=== PATIENT | male | born 1945 | race African-American/Black ===

== ENCOUNTER 2022-02-10 20:12 | Inpatient (IN) | payer BC, MEDICAID ==
[~2022-02-10] VITALS: Ht 177.8 cm; Wt 86.2 kg
--- NOTE | 2022-02-10 20:17 | NUR ---
PT BIBA BLS. TAKEN TO BED 9
[2022-02-10 20:19] VITALS: BP 146/96
--- NOTE | 2022-02-10 20:21 | NUR ---
Dr. Garza examining patient.
--- NOTE | 2022-02-10 20:27 | NUR ---
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 PT IS COVID POSITIVE. MASK IS ON PT.
[2022-02-10] MEDS ORDERED: NACL 0.9% 1,000 ML IV ONE (20:35)
--- NOTE | 2022-02-10 20:38 | NUR ---
X-Ray at bedside.
--- NOTE | 2022-02-10 21:03 | NUR ---
ASSUMED CARE OF PT AT THIS TIME. IV ESTABLISHED, BLOOD DRAWN. VSS. PT IN POSITION OF COMFORT. WILL FOLLOW THROUGH WITH ALL CURRENT ORDERS. WILL CONTINUE TO MONITOR
[2022-02-10 21:13] LABS: BASOPHILS % (AUTO) 0.2 % (0.0-2.0); EOSINOPHILS # (AUTO) 0.1 K/uL (0-0.4); EOSINOPHILS % (AUTO) 1.6 % (0.0-4.0); HEMATOCRIT 39.7 % (36-52); HEMOGLOBIN 13.3 g/dL (12.0-18.0); LYMPHOCYTES % (AUTO) 15.2 % (20.5-51.1); MEAN CORPUSCULAR HEMOGLOBIN 26 pg (27-31); MEAN CORPUSCULAR HGB CONC 33 g/dL (33-37); MEAN CORPUSCULAR VOLUME 78.2 fL (80-94); MONOCYTES # (AUTO) 0.9 K/uL (0.8-1.0); NEUTROPHILS # (AUTO) 4.6 K/uL (1.8-7.7); PLATELET COUNT (AUTO) 365 K/uL (140-450); RED BLOOD CELL COUNT(AUTO) 5.08 MIL/uL (4.20-6.10); RED CELL DISTRIBUTION WIDTH 18.1 % (11.6-13.7); WHITE BLOOD COUNT (AUTO) 6.6 K/uL (4.8-10.8)
--- NOTE | 2022-02-10 21:27 | NUR ---
PT TAKEN TO CT VIA LUCIA
[2022-02-10 21:32] LABS: APPEARANCE,URINE CLEAR (CLEAR); BILIRUBIN,URINE NEGATIVE (NEGATIVE); BLOOD, URINE TRACE-I (NEGATIVE); COLOR,URINE YELLOW (YELLOW); LEUKOCYTE ESTERASE ,URINE NEGATIVE (NEGATIVE); NITRITE, URINE NEGATIVE (NEGATIVE); UGLUCOSE NEGATIVE (NEGATIVE)
[2022-02-10 21:45] LABS: BARBITURATE, URINE NEGATIVE ng/ml (NEG <=200); BENZODIAZEPINE, URINE NEGATIVE ng/mL (NEG <=200); CANNABINOID, URINE NEGATIVE ng/mL (NEG <=50); COCAINE, URINE NEGATIVE ng/mL (NEG <=300); OPIATE, URINE NEGATIVE ng/mL (NEG <=2000); PHENCYCLIDINE SCREEN,URINE NEGATIVE ng/mL (NEG <=25)
[2022-02-10 21:47] LABS: ALBUMIN 2.9 g/dL (3.4-5.0); ANION GAP 16.5 (8-16); ASPARTATE AMINOTRANSFERASE 50 U/L (15-37); CARBON DIOXIDE 20.6 mmol/L (21-32); CHLORIDE 106 mmol/L (98-107); CREATININE 2.1 mg/dL (0.6-1.3); GLUCOSE 97 mg/dL (74-106); POTASSIUM 5.1 mmol/L (3.5-5.1); SODIUM SERUM 138 mmol/L (136-145); TOTAL BILIRUBIN 0.5 mg/dL (0.0-1.0); UREA NITROGEN, BLOOD 39 mg/dL (7-18)
[2022-02-10 21:47] LABS: RBC,URINE 0-5 /HPF (0-5); WBC,URINE 0-5 /HPF (0-5)
[2022-02-10 21:48] LABS: URINE AMORPHOUS URATE 1+ /HPF (None Seen)
[2022-02-10 21:53] LABS: ACETAMINOPHEN < 0.5 ug/ml (10-30); SALICYLATE < 2.8 mg/dL (2.8-20.0)
[2022-02-10] MEDS ORDERED: cefTRIAXone 1,000 MG VIAL ONE (22:31)
--- NOTE | 2022-02-10 23:25 | NUR ---
Pt resting, no s/s of distress noted. VSS. Awaiting results. Will continue to monitor pain/comfort.
[2022-02-11] MEDS ORDERED: [UNRECOGNIZED DRUG - CODE] PO (00:15)
[2022-02-11] MEDS ORDERED: ATOR20TA PO (00:15)
[2022-02-11] MEDS ORDERED: MAGN400S60 PO (00:15)
[2022-02-11] MEDS ORDERED: AMLO10TA PO (00:15)
[2022-02-11] MEDS ORDERED: SIME20SU1 PO (00:15)
[2022-02-11] MEDS ORDERED: ONDA-188 PO (00:15)
[2022-02-11] MEDS ORDERED: PANT40EC PO (00:15)
[2022-02-11] MEDS ORDERED: SIME80TA22 PO (00:15)
[2022-02-11] MEDS ORDERED: DOCU-299 PO (00:15)
[2022-02-11] MEDS ORDERED: MULT-2246 PO (00:15)
[2022-02-11] MEDS ORDERED: ASCO500T95 PO (00:15)
[2022-02-11] MEDS ORDERED: BISA-213 RC (00:15)
[2022-02-11] MEDS ORDERED: ACET-1182 PO (00:15)
[2022-02-11] MEDS ORDERED: ASPI-1822 PO (00:15)
--- NOTE | 2022-02-11 00:15 | NUR ---
Med-Rec reviewed.
[2022-02-11] MEDS ORDERED: ONDANSETRON 4 MG/2 ML VIAL IVP PRN (01:10)
[2022-02-11] MEDS ORDERED: ACETAMINOPHEN 325 MG TAB PO PRN (01:10)
--- NOTE | 2022-02-11 01:27 | NUR ---
PT RESTING, NO S/S OF DISTRESS NOTED AT THIS TIME. VSS. WILL CONTINUE TO MONITOR PAIN/COMFORT.
--- NOTE | 2022-02-11 03:20 | NUR ---
PT RESTING, NO S/S OF DISTRESS NOTED. VSS. WILL CONTINUE TO MONITOR.
--- NOTE | 2022-02-11 07:26 | NUR ---
Transfer of care at this time.
[2022-02-11] MEDS ORDERED: PANTOPRAZOLE 40 MG TABEC PO SCH (09:00)
[2022-02-11] MEDS ORDERED: ENOXAPARIN 40 MG/0.4 ML SYR SUBQ SCH (09:00)
[2022-02-11] MEDS ORDERED: DOCUSATE SODIUM 100 MG GELCAP PO SCH (09:00)
[2022-02-11] MEDS ORDERED: ATORVASTATIN 20 MG TAB PO SCH (09:00)
[2022-02-11] MEDS ORDERED: amLODIPine 5 MG TAB PO SCH (09:00)
[2022-02-11] MEDS ORDERED: ASPIRIN 81 MG TAB.CHEW PO SCH (09:00)
[2022-02-11 14:02] VITALS: BP 139/73
--- NOTE | 2022-02-11 14:07 | NUR ---
DX TO [facility] Addendum: 02/11/22 at 1407 by Michelle Ordaz RN RN Amended: Links added.
[2022-02-11 14:08] VITALS: BP 139/73
--- NOTE | 2022-02-11 14:22 | NUR ---
Note lizandro in EDM - 02/11/22 at 1628 by MEDR Patient discharged with v/s stable. Written and verbal after care instructions given and explained. Patient verbalized understanding. Wheel Chair Assisted to car. All questions addressed prior to discharge. Advised to follow up with PMD. dc back to [facility] granger rn given report.
--- NOTE | 2022-02-11 14:22 | NUR ---
report given back to binh joyner, pt has been d/c transport pending
--- NOTE | 2022-02-11 17:28 | NUR ---
pt being sent back to [facility] at this time
== END 2022-02-11 17:25 | DRG 640 ==
LOC: MED 20:12 → MTU 02-11 01:16
PROVIDERS: ADMIT Student in an Organized Health Care Education/Training Program; ATTEND Student in an Organized Health Care Education/Training Program
DX: E86.0 Dehydration (principal); G93.41 Metabolic encephalopathy; I21.A1 Myocardial infarction type 2; N39.0 Urinary tract infection, site not specified; I13.0 Hypertensive heart and chronic kidney disease with heart failure and stage 1 through stage 4 chronic kidney disease, or unspecified chronic kidney disease; N17.9 Acute kidney failure, unspecified; Z20.822 Contact with and (suspected) exposure to COVID-19; F03.90 Unspecified dementia, unspecified severity, without behavioral disturbance, psychotic disturbance, mood disturbance, and anxiety; E78.5 Hyperlipidemia, unspecified; E11.22 Type 2 diabetes mellitus with diabetic chronic kidney disease; N18.9 Chronic kidney disease, unspecified; I50.9 Heart failure, unspecified; Z86.73 Personal history of transient ischemic attack (TIA), and cerebral infarction without residual deficits; Z85.05 Personal history of malignant neoplasm of liver
CPT/HCPCS: 36415; 70450; 71045; 76770; 80053; 80305; 81001; 83880; 84484; 85025; 87086; 93005; 96361; 96365; 96366; 99285; G0480; G0482; J0696; J1650; J7030; Q0092

== ENCOUNTER 2022-06-12 13:11 | Inpatient (IN) | payer BC, OTHER ==
[~2022-06-12] VITALS: Ht 172.7 cm; Wt 88.0 kg
[~2022-06-12 13:11] MED LIST: ACET-1182 PO; AMLO10TA PO; ASCO500T95 PO; ASPI-1822 PO; ATOR20TA PO; BISA-213 RC; DOCU-299 PO; MAGN400S60 PO; MULT-2246 PO; ONDA-188 PO; PANT40EC PO; SIME20SU1 PO; SIME80TA41 PO; [UNRECOGNIZED DRUG - CODE] PO
--- NOTE | 2022-06-12 13:18 | NUR ---
BIBA TO BED 10
[2022-06-12 13:19] VITALS: BP 145/87
[2022-06-12] MEDS ORDERED: CARV6.25 PO (13:33)
[2022-06-12] MEDS ORDERED: MEGE40TA17 PO (13:33)
--- NOTE | 2022-06-12 14:13 | NUR ---
GILBERT SWAB COLLECTED AND HANDED TO PRODUCTION CONTROL COORDINATOR PAM
--- NOTE | 2022-06-12 14:19 | NUR ---
77/M NGOZI FROM [facility], PER EMS STAFF CALLED 911 STATING PATIENT WAS ALTERED. PATIENT NONVERBAL AT BASELINE BUT CAN NOD YES AND NO ACCORDING TO STAFF, STATING TODAY PATIENT NOT NODDING YES OR NO. PATIENT ON 3L NC AT BASELINE, ON ARRIVAL PATIENT ABLE TO NOD YES OR NO TO QUESTIONS ASKED. PATIENT PLACED IN GOWN ON BEDSIDE LEGAL BILLING CLERK, DR. MCNEAL BEDSIDE EVALUATING PATIENT UPON ARRIVAL.
--- NOTE | 2022-06-12 14:40 | NUR ---
# 15 FR Urinary catheter inserted utilizing sterile technique. Immediate return of 20 ml YELLOW, CLOUDY urine noted. Urine sample collected and sent to lab. Pt tolerated procedure WELL.
[2022-06-12 14:44] LABS: BASOPHILS % (AUTO) 0.3 % (0.0-2.0); EOSINOPHILS # (AUTO) 0.1 K/uL (0-0.4); HEMATOCRIT 28.1 % (36-52); HEMOGLOBIN 8.9 g/dL (12.0-18.0); LYMPHOCYTES # (AUTO) 1.4 K/uL (2.0-11.5); LYMPHOCYTES % (AUTO) 13.8 % (20.5-51.1); MEAN CORPUSCULAR HEMOGLOBIN 25 pg (27-31); MEAN CORPUSCULAR HGB CONC 32 g/dL (33-37); MEAN CORPUSCULAR VOLUME 77.7 fL (80-94); MONOCYTES # (AUTO) 1.7 K/uL (0.8-1.0); MONOCYTES % (AUTO) 16.6 % (1.7-9.3); NEUTROPHILS # (AUTO) 7.1 K/uL (1.8-7.7); NEUTROPHILS % (AUTO) 68.3 % (42.2-75.2); PLATELET COUNT (AUTO) 311 K/uL (140-450); RED BLOOD CELL COUNT(AUTO) 3.62 MIL/uL (4.20-6.10); RED CELL DISTRIBUTION WIDTH 20.1 % (11.6-13.7); WHITE BLOOD COUNT (AUTO) 10.4 K/uL (4.8-10.8)
[2022-06-12 15:00] LABS: ANION GAP 18.7 (8-16); ASPARTATE AMINOTRANSFERASE 41 U/L (15-37); CARBON DIOXIDE 14.4 mmol/L (21-32); CHLORIDE 112 mmol/L (98-107); GLUCOSE 100 mg/dL (74-106); POTASSIUM 5.1 mmol/L (3.5-5.1); SODIUM SERUM 140 mmol/L (136-145); TOTAL BILIRUBIN 0.4 mg/dL (0.0-1.0); UREA NITROGEN, BLOOD 41 mg/dL (7-18)
[2022-06-12 15:03] LABS: APPEARANCE,URINE CLEAR (CLEAR); BILIRUBIN,URINE NEGATIVE (NEGATIVE); BLOOD, URINE 2+ (NEGATIVE); COLOR,URINE YELLOW (YELLOW); LEUKOCYTE ESTERASE ,URINE 3+ (NEGATIVE); NITRITE, URINE NEGATIVE (NEGATIVE); UGLUCOSE NEGATIVE (NEGATIVE)
[2022-06-12 15:18] LABS: RBC,URINE 11-20 (MOD) /HPF (0-5); WBC,URINE 20-60 /HPF (0-5)
[2022-06-12] MEDS ORDERED: cefTRIAXone 1,000 MG VIAL ONE (15:39)
--- NOTE | 2022-06-12 15:46 | NUR ---
PATIENT ADJUSTED IN BED IN A POSITION OF COMFORT, REMAINS ON BEDSIDE RADIOGRAPHIC TECHNOLOGIST. ALL NEEDS MET AT THIS TIME.
[2022-06-12] MEDS ORDERED: ACETAMINOPHEN 325 MG TAB PO PRN (16:45)
[2022-06-12] MEDS ORDERED: HYDROcodone/APAP 5/325 MG 1 TAB TAB PO PRN (16:45)
[2022-06-12] MEDS ORDERED: MORPHINE SULFATE 4 MG/ML SYR IVP PRN (16:45)
[2022-06-12] MEDS ORDERED: MAGNESIUM OXIDE 400 MG TAB PO PRN (16:45)
[2022-06-12] MEDS ORDERED: POTASSIUM CHLORIDE 10 MEQ TABER PO PRN (16:45)
[2022-06-12] MEDS ORDERED: ONDANSETRON 4 MG/2 ML VIAL IVP PRN (16:45)
--- NOTE | 2022-06-12 17:02 | NUR ---
PATIENT HAS BEEN SCREENED AND CATEGORIZED MODERATE NUTRITION RISK. PATIENT WILL BE SEEN WITHIN 3-5 DAYS OF ADMISSION. REVIEWED BY DESMOND LEE RD
--- NOTE | 2022-06-12 17:38 | NUR ---
Patient will be admitted to care of Dr. Jason. Admited to TELE. Will go to room 121 A. Belongings list completed. Report to DAMON.
--- NOTE | 2022-06-12 17:42 | NUR ---
PT WAS BROUGHT IN FROM THE ED IN STABLE CONDITION, VSS. TRANSFERRED TO [facility], 3 PERSON ASSIST. PT IS BEDBOUND. PT IS APHASIC BUT ABLE TO NOD YES AND NO AND TRACK. AUDITORY WHEEZING HEARD EXPIRATORY AND INSPIRATORY. ON 3L NC. IV TO LEFT AC 20G SL. PT PLACED ON TELE MONITOR. MRSA SWAB OBTAINED.
[2022-06-12] MEDS ORDERED: DEXTROSE 50% 50 ML SYR IVP PRN (18:45)
[2022-06-12] MEDS ORDERED: INSULIN LISPRO SLIDING SCALE 100 UNITS/ML VIAL SUBQ PRN (18:45)
--- NOTE | 2022-06-12 19:00 | NUR ---
RECEIVED PT IN BED ASLEEP, EASILY AROUSABLE BY VERBAL STIMULI. NO S/SX OF PAIN NOR DISCOMFORT. NO S/SX OF ACUTE RESPIRATORY DISTRESS. INCONTINENT OF URINE, PERINEAL CARE RENDERED, MADE COMFORTABLE IN BED. SKIN WARM AND DRY TO TOUCH. SAFETY PRECAUTION IN PLACE, CALL LIGHT IN REACH.
[2022-06-12 20:00] VITALS: BP 131/82
[2022-06-12] MEDS: BLOOD GLUCOSE MONITORING 1 DEV DEV FS SCH (20:48)
[2022-06-13] VITALS: BP 159/81
[2022-06-13 04:00] VITALS: BP 137/82
--- NOTE | 2022-06-13 05:00 | NUR ---
AM CARE DONE. REPOSITIONED PT AND MADE COMFORTABLE IN BED. CALL LIGHT IN REACH.
[2022-06-13 06:14] LABS: ANION GAP 16.9 (8-16); ASPARTATE AMINOTRANSFERASE 41 U/L (15-37); CARBON DIOXIDE 16.6 mmol/L (21-32); CHLORIDE 114 mmol/L (98-107); CREATININE 1.9 mg/dL (0.6-1.3); GLUCOSE 93 mg/dL (74-106); MAGNESIUM 1.7 mg/dL (1.8-2.4); POTASSIUM 4.5 mmol/L (3.5-5.1); SODIUM SERUM 143 mmol/L (136-145); TOTAL BILIRUBIN 0.4 mg/dL (0.0-1.0); UREA NITROGEN, BLOOD 42 mg/dL (7-18)
[2022-06-13] MEDS: BLOOD GLUCOSE MONITORING 1 DEV DEV FS SCH ×4 (06:31→20:41)
[2022-06-13 08:00] VITALS: BP 116/76
[2022-06-13] MEDS ORDERED: DOCUSATE SODIUM 100 MG GELCAP PO SCH (09:00)
[2022-06-13] MEDS: FUROSEMIDE 20 MG/2 ML VIAL IVP SCH ×2 (10:42→20:36)
[2022-06-13 12:00] VITALS: BP 118/71
[2022-06-13] MEDS: ALBUTEROL SULFATE/IPRATROPIU 3 ML SOL IH SCH ×2 (12:45→18:45)
--- NOTE | 2022-06-13 13:30 | NUR ---
DC PLANNING ASSESSMENT COMPLETE SEE ASSESSMENT FOR DETAILS FAMILY IS REQUESTING PT NOT RETURN TO [facility]. FAMILY REQUESTING REFERRAL BE SENT TO [facility] OR SNFS IN THE [place]. EXPLAINED TO RAFFI HOW PLACEMENT IS TYPICALLY ARRANGED AND DISCUSSED BARRIERS IN FINDING [facility] PLACEMENT, RAFFI VERBALIZED UNDERSTANDING. SW ENDORSED TO . Addendum: 06/14/22 at 1514 by Martha WHITFIELD Amended: Links added. Addendum: 06/18/22 at 1059 by Martha WHITFIELD REFERRAL PACKET SENT TO [facility], FAX [phone], [facility], AND [facility], Addendum: 06/18/22 at 1438 by Martha WHITFIELD OUTREACHED TO [facility], TO FOLLOW UP ON REFERRAL PACKET SENT, SPOKE WITH JENNY WHO REPORTED FACILITY UNABLE TO ACCEPT PATIENT. OUTREACHED TO [facility], AND SPOKE WITH ALLY WHO REPORTS FACILITY UNABLE TO ACCEPT PT. OUTREACHED TO [facility], , SPOKE WITH DOMENICA WHO REPORTS UNABLE TO ACCEPT [facility] AT THIS TIME Addendum: 06/18/22 at 1542 by Martha Ling PT ACCEPTED BACK TO [facility], ROOM 43B, ACCEPTING ; DR FUENTES, CALL REPORT NUMBER [phone]. [facility] TRANSPORT REQUEST FORM FAXED TO [phone]. [facility] TO CALL NURSE STATION WITH ETA ONCE REVIEWED. ENDORSED TO PT NURSE. Addendum: 06/18/22 at 1547 by Martha WHITFIELD NOTIFIED PTS SISTERBILLY PT WILL BE GETTING PICKED UP B/W 5:30-6PM TO RETURN TO [facility] Addendum: 06/18/22 at 1704 by Martha WHITFIELD OUTREACHED TO CALL THE CAR [phone] FOR UPDATE ON TRANSPORT. TRANSPORTATION ARRANGED WITH ANKUR AT CALL THE CAR FOR A P/UP OF 6PM. ENDORSED TO PT NURSE. Addendum: 06/18/22 at 1709 by Martha WHITFIELD CALL THE CAR CONFIRMATION #[id number]
[2022-06-13 16:00] VITALS: BP 122/69
--- NOTE | 2022-06-13 19:30 | NUR ---
RECEIVED PT IN BED ASLEEP. NO S/SX OF PAIN NOR DISCOMFORT. NO ACUTE RESPIRATORY DISTRESS NOTED. SKIN WARM AND DRY TO TOUCH. SAFETY PRECAUTION IN PLACE, CALL LIGHT IN REACH.
[2022-06-13 20:00] VITALS: BP 148/76
[2022-06-13] MEDS: SODIUM BICARBONATE 650 MG TAB PO SCH (20:36)
--- NOTE | 2022-06-13 21:00 | NUR ---
PATIENT HAD A BOWEL MOVEMENT, NOTED MODERATED AMOUNT OF BROWN SOFT STOOL, CLEANED PATIENT. MADE COMFORTABLE IN BED. CALL LIGHT PLACED WITHIN REACH.
--- NOTE | 2022-06-13 21:40 | NUR ---
COLLECTED URINE AND SENT TO THE LAB ORDERED.
[2022-06-13 22:32] LABS: URINE TOTAL PROTEIN 126.7 mg/dL (0-12)
[2022-06-14] VITALS: BP 141/92
[2022-06-14] MEDS: ALBUTEROL SULFATE/IPRATROPIU 3 ML SOL IH SCH ×4 (01:23→19:45)
[2022-06-14 04:00] VITALS: BP 126/90
--- NOTE | 2022-06-14 05:00 | NUR ---
AM CARE RENDERED. MADE COMFORTABLE IN BED. CALL LIGHT IN REACH.
[2022-06-14 06:06] LABS: ALBUMIN 3.2 g/dL (3.4-5.0); ANION GAP 17.3 (8-16); ASPARTATE AMINOTRANSFERASE 36 U/L (15-37); CARBON DIOXIDE 18.7 mmol/L (21-32); CHLORIDE 110 mmol/L (98-107); CREATININE 2.1 mg/dL (0.6-1.3); GLUCOSE 91 mg/dL (74-106); MAGNESIUM 1.7 mg/dL (1.8-2.4); SODIUM SERUM 142 mmol/L (136-145); TOTAL BILIRUBIN 0.5 mg/dL (0.0-1.0); UREA NITROGEN, BLOOD 47 mg/dL (7-18)
--- NOTE | 2022-06-14 06:23 | NUR ---
PATIENT IS ASLEEP. NO DISTRESS NOTED. ALL NEEDS ATTENDED TO. SAFETY PRECAUTIONS IN PLACE, CALL LIGHT REMAINS WITHIN REACH.
[2022-06-14] MEDS: BLOOD GLUCOSE MONITORING 1 DEV DEV FS SCH ×4 (06:33→20:18)
[2022-06-14 08:00] VITALS: BP 124/77
--- NOTE | 2022-06-14 08:00 | NUR ---
Received patient resting comfortably in bed. Not in any form of distress. Aphasic. Assessment done and documented. Safety precaution in place. Will continue plan of care.
[2022-06-14] MEDS: DOCUSATE SODIUM 100 MG GELCAP PO SCH (08:46)
[2022-06-14] MEDS: SODIUM BICARBONATE 650 MG TAB PO SCH ×2 (08:46→20:18)
[2022-06-14] MEDS: ECOTRIN 81 MG TABEC PO SCH (08:46)
[2022-06-14] MEDS: ATORVASTATIN 20 MG TAB PO SCH (08:46)
[2022-06-14] MEDS: amLODIPine 5 MG TAB PO SCH (08:46)
[2022-06-14] MEDS: FUROSEMIDE 20 MG/2 ML VIAL IVP SCH (08:56)
[2022-06-14 12:00] VITALS: BP 130/67
[2022-06-14] MEDS: SODIUM FERRIC GLUCONATE 125 MG in NACL 0.9% 100 ML IV SCH (12:52)
--- NOTE | 2022-06-14 13:00 | NUR ---
TREATMENT NOT GIVEN. PT HAS CLEAR BREATH SOUNDS, NO WHEEZING. SATURATION WAS 99% ON ROOM AIR. AWAKE AND ALERT. NO DISTRESS NOTED. WILL CONTINUE TO MONITOR.
[2022-06-14 16:00] VITALS: BP 124/77
--- NOTE | 2022-06-14 18:52 | NUR ---
Lab called patient urine came back positive for MRSA. made aware.
--- NOTE | 2022-06-14 19:30 | NUR ---
RECEIVED PT IN BED AWAKE. NO S/SX OF PAIN NOR DISCOMFORT. NO ACUTE RESPIRATORY DISTRESS. ON ROOM AIR SAT 100%. SKIN WARM AND DRY TO TOUCH. BED IN THE LOWEST AND LOCKED POSITION FOR SAFETY, CALL LIGHT WITHIN REACH.
[2022-06-14 20:00] VITALS: BP 132/73
--- NOTE | 2022-06-14 20:52 | NUR ---
PATIENT A SHORT RUN OF V-TACH, PT ASYMPTOMATIC BP-132/73. NO S/SX OF PAIN NOR DISCOMFORT. WILL INFORM DR. MA.
--- NOTE | 2022-06-14 22:30 | NUR ---
PT HAD A BOWEL MOVEMENT AND INCONTINENT OF URINE, CLEANED PATIENT AND MADE COMFORTABLE IN BED.
[2022-06-15] VITALS: BP 128/74
[2022-06-15] MEDS: ALBUTEROL SULFATE/IPRATROPIU 3 ML SOL IH SCH ×3 (01:00→15:11)
--- NOTE | 2022-06-15 01:15 | NUR ---
DID NOT GIVE PT SCHEDULED BREATHING TX. PT WAS ASLEEP, SPO2 WAS 98% AND NO RESPIRATORY DISTRESS WAS NOTED. RT WOKE PT TO ASK IF HE WANTED HIS MED, PT INDICATED HE DID NOT.
--- NOTE | 2022-06-15 01:22 | NUR ---
PATIENT IS ASLEEP. NO S/SX OF PAIN NOR DISCOMFORT. CALL LIGHT WITHIN REACH.
[2022-06-15 04:00] VITALS: BP 126/74
[2022-06-15 06:21] LABS: ALBUMIN 2.9 g/dL (3.4-5.0); ANION GAP 14.3 (8-16); ASPARTATE AMINOTRANSFERASE 32 U/L (15-37); CARBON DIOXIDE 19.8 mmol/L (21-32); CHLORIDE 109 mmol/L (98-107); CREATININE 2.2 mg/dL (0.6-1.3); GLUCOSE 93 mg/dL (74-106); MAGNESIUM 1.6 mg/dL (1.8-2.4); POTASSIUM 4.1 mmol/L (3.5-5.1); SODIUM SERUM 139 mmol/L (136-145); TOTAL BILIRUBIN 0.5 mg/dL (0.0-1.0); UREA NITROGEN, BLOOD 47 mg/dL (7-18)
--- NOTE | 2022-06-15 06:46 | NUR ---
PATIENT IS ASLEEP. NO DISTRESS NOTED. ALL NEEDS ATTENDED TO. SAFETY PRECAUTIONS MAINTAINED DURING THE SHIFT, CALL LIGHT REMAINS WITHIN REACH.
[2022-06-15] MEDS: BLOOD GLUCOSE MONITORING 1 DEV DEV FS SCH ×4 (06:48→21:55)
[2022-06-15 08:00] VITALS: BP 115/66
--- NOTE | 2022-06-15 08:27 | NUR ---
0800: RECEIVED PT FROM MELISSA PUENTES. NO SOB, GUARDING, OR GRIMACING. NO ACUTE DISTRESS NOTED AT THIS TIME. [id number].
[2022-06-15] MEDS: ECOTRIN 81 MG TABEC PO SCH (09:23)
[2022-06-15] MEDS: DOCUSATE SODIUM 100 MG GELCAP PO SCH (09:24)
[2022-06-15] MEDS: FUROSEMIDE 40 MG TAB PO SCH (09:25)
[2022-06-15] MEDS: amLODIPine 5 MG TAB PO SCH (09:26)
[2022-06-15] MEDS: ATORVASTATIN 20 MG TAB PO SCH (09:26)
[2022-06-15] MEDS: SODIUM BICARBONATE 650 MG TAB PO SCH ×2 (09:27→21:57)
[2022-06-15] MEDS ORDERED: MAG SULF 2000 MG/WATER PREMIX 50 ML IV SCH ×2 (10:10→14:14)
[2022-06-15 12:00] VITALS: BP 136/68
[2022-06-15] MEDS: SODIUM FERRIC GLUCONATE 125 MG in NACL 0.9% 100 ML IV SCH (12:46)
--- NOTE | 2022-06-15 14:18 | NUR ---
PT. WITH LOW MORENITA SCALE AT MODERATE TO HIGH RISK, CONTINUE TO FOLLOW PRESSURE INJURY PREVENTION INTERVENTIONS. -POSITIONING: TURN AND REPOSITION PATIENT Q 2H OR SOONER USE PILLOWS TO KEEP BONY PROMINENCES FROM DIRECT CONTACT WITH SURFACES USE REPOSITIONING WEDGES TO PROVIDE 30-DEGREE ANGLE FOR SIDE LYING POSITIONS OFFLOADING OR FOAM DRESSING TO ALL TUBING TO PREVENT MEDICAL DEVICES RELATED PRESSURE INJURY -RE-EVALUATING AND MANAGING INCONTINENCE MONITOR SKIN CONDITION DURING POSITION CHANGE DO NOT MASSAGE REDNESS, BONY PROMINENCES FREQUENT LAVERNE-CARE AND PROVIDE BARRIER CREAMS PRN IF SOILING MOISTURE CONTROL BY OFFER BED VALDEZ/URINAL /ABSORBENT PAD TO WICK AND HOLD MOISTURE KEEP SKIN DRY AND PROTECT FROM FRICTION -MANAGE FRICTION/SHEAR/MOBILITY KEEP HOB AT THE LOWEST LEVEL OF ELEVATION NO MORE THAN 30 DEGREE UNLESS OTHERWISE CONTRAINDICATED USE LIFT SHEET OR TRANSFER DEVICE TO MOVE PATIENT AND PREVENT LATERAL SHEER. PROTECT HEELS, ELBOWS BONY PROMINENCES WITH SKIN BERRIES OR FOAM DRESSING IF EXPOSED TO FRICTION OFFLOAD BILATERAL HEELS BY PLACING PILLOWS UNDER CALVES AT ALL TIMES, UNLESS OTHERWISE CONTRAINDICATED -PRESSURE REDISTRIBUTION SURFACE THERAPY CAMERON ISOFLEX MATTRESS -NUTRITION: PLEASE FOLLOW RD RECOMMENDATIONS AND OFFER NUTRITION SUPPLEMENTS IF ORDERED. PLEASE CONTACT WOUND CARE NURSE FOR ANY QUESTION AND CHANGE OF WOUND CONDITION.
[2022-06-15 16:00] VITALS: BP 122/86
--- NOTE | 2022-06-15 16:04 | NUR ---
06/15/22 RD INITIAL ASSESSMENT COMPLETED PLEASE REFER TO NUTRITION ASSESSMENT UNDER CARE ACTIVITY FOR ESTIMATED NUTRITIONAL NEEDS. 1. CONTINUE CARDIAC DIET TOLERATED 2. PROVIDED CHF HANDOUT TO PT. 3. MONITOR GI, PO INTAKE, AND LAB VALUES. 4. RD TO FOLLOW-UP 7 DAYS, LOW RISK REVIEWED BY DESMOND LEE RD
[2022-06-15] MEDS ORDERED: VANCOMYCIN PER PHARMACY MC PRN (18:05)
[2022-06-15 20:00] VITALS: BP 124/68
[2022-06-15] MEDS: VANCOMYCIN 1,000 MG in DEXTROSE 5% 250 ML IV SCH (20:00)
--- NOTE | 2022-06-15 21:21 | NUR ---
1929: REPORTED OFF TO JERSON PUENTES.
[2022-06-16] VITALS: BP 132/64
[2022-06-16 04:00] VITALS: BP 142/85
[2022-06-16 06:33] LABS: ANION GAP 15.4 (8-16); CARBON DIOXIDE 19.6 mmol/L (21-32); CHLORIDE 107 mmol/L (98-107); CREATININE 2.3 mg/dL (0.6-1.3); GLUCOSE 95 mg/dL (74-106); SODIUM SERUM 138 mmol/L (136-145); UREA NITROGEN, BLOOD 50 mg/dL (7-18)
[2022-06-16 06:35] LABS: ALBUMIN 2.6 g/dL (3.4-5.0); ANION GAP 14.6 (8-16); ASPARTATE AMINOTRANSFERASE 51 U/L (15-37); CARBON DIOXIDE 21.3 mmol/L (21-32); CHLORIDE 107 mmol/L (98-107); CREATININE 2.3 mg/dL (0.6-1.3); GLUCOSE 95 mg/dL (74-106); MAGNESIUM 2.2 mg/dL (1.8-2.4); POTASSIUM 3.9 mmol/L (3.5-5.1); SODIUM SERUM 139 mmol/L (136-145); TOTAL BILIRUBIN 0.3 mg/dL (0.0-1.0); UREA NITROGEN, BLOOD 49 mg/dL (7-18)
[2022-06-16] MEDS: ALBUTEROL SULFATE/IPRATROPIU 3 ML SOL IH SCH ×3 (07:00→19:24)
[2022-06-16] MEDS: BLOOD GLUCOSE MONITORING 1 DEV DEV FS SCH ×4 (07:30→22:30)
--- NOTE | 2022-06-16 07:30 | NUR ---
RECEIVED REPORT FROM NIGHTSHIFT NURSE FLORES FOR CONTINUITY OF CARE. PT IN STABLE
[2022-06-16 08:00] VITALS: BP 147/76
[2022-06-16] MEDS: ECOTRIN 81 MG TABEC PO SCH (09:23)
[2022-06-16] MEDS: DOCUSATE SODIUM 100 MG GELCAP PO SCH (09:24)
[2022-06-16] MEDS: FUROSEMIDE 40 MG TAB PO SCH (09:24)
[2022-06-16] MEDS: SODIUM BICARBONATE 650 MG TAB PO SCH ×2 (09:24→22:28)
[2022-06-16] MEDS: amLODIPine 5 MG TAB PO SCH (09:24)
[2022-06-16] MEDS: ATORVASTATIN 20 MG TAB PO SCH (09:24)
[2022-06-16 12:00] VITALS: BP 140/71
[2022-06-16] MEDS: SODIUM FERRIC GLUCONATE 125 MG in NACL 0.9% 100 ML IV SCH (12:32)
[2022-06-16 16:00] VITALS: BP 126/61
--- NOTE | 2022-06-16 19:10 | NUR ---
ENDORSED PT TO NIGHTSHIFT NURSE ADALID FOR CONTINUITY OF CARE. PT IN STABLE CONDITION.
--- NOTE | 2022-06-16 19:30 | NUR ---
RECEIVED REPORT FROM DAY SHIFT NURSE CRESENCIO FOR CONTINUITY OF CARE. PATIENT IS A&O X1. PATIENT IS ON ROOM AIR, BREATHING IS NORMAL WITH SYMMETRICAL RISE AND FALL OF CHEST. PATIENT'S IV IS A 24G L HAND, RUNNING NS TKO. PATIENT IS SLEEPING, LYING HIGH-FOWLERS. BED IS IN LOWEST POSITION, WHEELS LOCKED, CALL LIGHT IN PLACE. WILL CONTINUE TO OBSERVE PATIENT.
[2022-06-16 20:00] VITALS: BP 136/72
[2022-06-16] MEDS: VANCOMYCIN 1,000 MG in DEXTROSE 5% 250 ML IV SCH (20:10)
[2022-06-17] VITALS: BP 121/70
[2022-06-17] MEDS: ALBUTEROL SULFATE/IPRATROPIU 3 ML SOL IH SCH ×3 (00:49→19:28)
[2022-06-17 04:00] VITALS: BP 112/70
--- NOTE | 2022-06-17 05:00 | NUR ---
PATIENT SLEPT DURING MOST OF THE NIGHT; PERIODICALLY WAKING UP. PATIENT'S DEMEANOR HAS BEEN GOOD, SMILING AND FOLLOWING ME WITH HIS EYES; ALSO WAVING TO ME ONCE WHILE I EXITED THE ROOM. PATIENT TOOK HIS 2100 MEDICATION CRUSHED IN APPLESAUCE WITH NO DIFFICULTY IN SWALLOWING. GAVE PATIENT CUP OF WATER AND HE BEGAN SUCKING ON THE STRAW WITHOUT ANY PROMPTING TO; HOWEVER, HE DRANK FAST AND STARTED COUGHING, I IMMEDIATELY TOOK THE CUP AWAY AND WAITED FOR HIM TO FINISH (THE COUGHING LASTED AROUND 15 SECONDS). I THEN GAVE HIM THE STRAW AGAIN ONLY ALLOWING A FEW SIPS AT A TIME, WHICH SEEMED TO BE EFFECTIVE. PATIENT HAD ONE VOID WITH ONE BM. BREATHING WAS NORMAL WITH SYMMETRICAL RISE AND FALL OF CHEST. WILL CONTINUE TO OBSERVE PATIENT.
[2022-06-17 06:32] LABS: ANION GAP 17.8 (8-16); CARBON DIOXIDE 18.3 mmol/L (21-32); CHLORIDE 106 mmol/L (98-107); CREATININE 2.2 mg/dL (0.6-1.3); GLUCOSE 97 mg/dL (74-106); POTASSIUM 4.1 mmol/L (3.5-5.1); SODIUM SERUM 138 mmol/L (136-145); UREA NITROGEN, BLOOD 47 mg/dL (7-18)
[2022-06-17 06:38] LABS: ALBUMIN 3.1 g/dL (3.4-5.0); ANION GAP 18.7 (8-16); ASPARTATE AMINOTRANSFERASE 50 U/L (15-37); CARBON DIOXIDE 18.4 mmol/L (21-32); CHLORIDE 106 mmol/L (98-107); CREATININE 2.2 mg/dL (0.6-1.3); GLUCOSE 96 mg/dL (74-106); POTASSIUM 4.1 mmol/L (3.5-5.1); SODIUM SERUM 139 mmol/L (136-145); TOTAL BILIRUBIN 0.4 mg/dL (0.0-1.0); UREA NITROGEN, BLOOD 49 mg/dL (7-18)
[2022-06-17] MEDS: BLOOD GLUCOSE MONITORING 1 DEV DEV FS SCH ×4 (06:46→21:58)
--- NOTE | 2022-06-17 07:27 | NUR ---
ENDORSED TO DAY SHIFT NURSE KRYSTAL FOR CONTINUITY OF CARE. PATIENT IS STABLE.
[2022-06-17 08:00] VITALS: BP 125/66
[2022-06-17 12:00] VITALS: BP 123/59
[2022-06-17] MEDS: ATORVASTATIN 20 MG TAB PO SCH (12:11)
[2022-06-17] MEDS: ECOTRIN 81 MG TABEC PO SCH (12:22)
[2022-06-17] MEDS: SODIUM BICARBONATE 650 MG TAB PO SCH ×2 (12:22→20:24)
[2022-06-17] MEDS: FUROSEMIDE 40 MG TAB PO SCH (12:22)
[2022-06-17] MEDS: DOCUSATE SODIUM 100 MG GELCAP PO SCH (12:23)
[2022-06-17] MEDS: amLODIPine 5 MG TAB PO SCH (12:23)
[2022-06-17] MEDS: SODIUM FERRIC GLUCONATE 125 MG in NACL 0.9% 100 ML IV SCH (12:33)
[2022-06-17 16:00] VITALS: BP 126/64
--- NOTE | 2022-06-17 19:30 | NUR ---
RECEIVED REPORT FROM DAY SHIFT NURSE KRYSTAL FOR CONTINUITY OF CARE. PATIENT IS A&O X1. PATIENT IS ON ROOM AIR, BREATHING IS NORMAL WITH SYMMETRICAL RISE AND FALL OF CHEST. PATIENT'S IV IS A 24G L HAND, RUNNING NS TKO. PATIENT IS AWAKE, LYING HIGH-FOWLERS POSITION. BED IS IN LOWEST POSITION, WHEELS LOCKED, CALL LIGHT IN PLACE. WILL CONTINUE TO OBSERVE PATIENT.
[2022-06-17 20:00] VITALS: BP 99/63
--- NOTE | 2022-06-17 20:20 | NUR ---
GAGE MAKER FITO REPORTED TROPH LEVEL OF 17.1. CONTACTED PHARMACY; PHARMACIST KOFI GAVE THE OKAY TO GIVE NEXT DOSE OF VANCOMYCIN IV STATING THAT PATIENT CAN HAVE DOSE LONG TROPH IS BELOW 20. PHARMACIST ALSO STATED THAT HE WOULD PUT IN THE NEXT TROPH DOSE. VANCO WAS ADMINISTERED SUCCESSFULLY WITHOUT ANY ISSUES. WILL CONTINUE TO OBSERVE PATIENT.
[2022-06-17] MEDS: VANCOMYCIN 1,000 MG in DEXTROSE 5% 250 ML IV SCH (20:21)
[2022-06-18] VITALS: BP 123/67
[2022-06-18] MEDS: ALBUTEROL SULFATE/IPRATROPIU 3 ML SOL IH SCH (00:58)
[2022-06-18 04:00] VITALS: BP 125/74
--- NOTE | 2022-06-18 04:55 | NUR ---
PATIENT TOLERATED 2100 MEDICATION ADMINISTRATION WELL. PATIENT TOOK MEDICATION WITH APPLE SAUCE WITH NO DIFFICULTY IN SWALLOWING. PATIENT ALL OF THE APPLE SAUCE; AND DRANK ONE CUP OF WATER, ALSO WITH NO DIFFICULTY IN SWALLOWING. PATIENT HAS SLEPT OFF AND ON THROUGHOUT THE NIGHT. PATIENT WAS CLEANED AND CHANGED; HAD ONE VOID AND ONE BM. PATIENT TOLERATED CHANGING WELL. PATIENT'S BREATHING IS NORMAL WITH SYMMETRICAL RISE AND FALL OF CHEST. WILL CONTINUE TO OBSERVE PATIENT.
[2022-06-18] MEDS: BLOOD GLUCOSE MONITORING 1 DEV DEV FS SCH ×3 (06:32→16:52)
--- NOTE | 2022-06-18 07:15 | NUR ---
ENDORSED TO DAY SHIFT NURSE KRYSTAL FOR CONTINUITY OF CARE. PATIENT IS STABLE.
--- NOTE | 2022-06-18 07:44 | NUR ---
DR. YULIA BROWN IN MST; REVIEWED PATIENT PULMONARY, OXTGEN AND HHN FREQUENCY STATUS; VORBO: TERESITA BILLY Q6 KEEP PRN FREQUENCY Addendum: 06/18/22 at 0750 by Regulo Grover RT OXTGEN=[email or web address]
[2022-06-18] MEDS ORDERED: ALBUTEROL SULFATE/IPRATROPIU 3 ML SOL IH PRN (07:50)
[2022-06-18 08:00] VITALS: BP 124/71
[2022-06-18] MEDS ORDERED: ALBU3SOL83 IH (08:49)
[2022-06-18] MEDS ORDERED: HEPA500056 SUBQ (08:49)
[2022-06-18] MEDS ORDERED: SODI650T2 PO (08:49)
[2022-06-18] MEDS ORDERED: VANC1PLA7 IV (08:49)
[2022-06-18] MEDS ORDERED: FURO40TA9 PO (08:49)
[2022-06-18] MEDS: FUROSEMIDE 40 MG TAB PO SCH (09:00)
[2022-06-18] MEDS: SODIUM BICARBONATE 650 MG TAB PO SCH (09:00)
[2022-06-18] MEDS: DOCUSATE SODIUM 100 MG GELCAP PO SCH (10:14)
[2022-06-18] MEDS: ECOTRIN 81 MG TABEC PO SCH (10:14)
[2022-06-18] MEDS: amLODIPine 5 MG TAB PO SCH (10:15)
[2022-06-18] MEDS: ATORVASTATIN 20 MG TAB PO SCH (10:15)
[2022-06-18 10:43] LABS: ANION GAP 14.3 (8-16); CARBON DIOXIDE 21.1 mmol/L (21-32); CHLORIDE 105 mmol/L (98-107); CREATININE 2.1 mg/dL (0.6-1.3); GLUCOSE 94 mg/dL (74-106); POTASSIUM 4.4 mmol/L (3.5-5.1); SODIUM SERUM 136 mmol/L (136-145); UREA NITROGEN, BLOOD 46 mg/dL (7-18)
[2022-06-18 12:00] VITALS: BP 121/70
[2022-06-18] MEDS: SODIUM FERRIC GLUCONATE 125 MG in NACL 0.9% 100 ML IV SCH (12:25)
--- NOTE | 2022-06-18 14:51 | NUR ---
DC PLANNING: RECEIVED ORDER FOR DC TO SNF FOR PT. REFERRAL SENT TO [facility] AND [facility]. RECEIVED A CALL FROM TAMIA OF [facility] STATING THAT THEY ARE ABLE TO ACCEPT PATIENT. INFORMED TAMIA THAT PATIENT'S DAUGHTER WILL BE CHECKING THE FACILITIES THAT WE SENT THE REFERRALS. [facility] STATED THAT THEY ARE ABLE TO ACCEPT PATIENT. PATIENT'S DAUGHTER SHELBI INFORMED. PER SHELBI, SHE IS JUST FINISHING SOMETHING AND WILL GO TO TOUR THE FACILITY. INFORMED SHELBI THAT THIS CM WILL BE HERE UNTIL 1630 AND IF WE CAN HAVE A DECISION BEFORE THAT FOR US TO ARRANGE TRANSPORTATION. SHELBI ABLE TO VERBALIZE UNDERSTANDING. Addendum: 06/18/22 at 1532 by Yumiko Shrestha CM WRONG ENTRY. CHARTED ON THE WRONG PATIENT. Addendum: 06/18/22 at 1540 by Yumiko Shrestha CM PATIENT'S DAUGHTER PEGGY HOLCOMB AND PATIENT'S SISTER RAFFI INFORMED THAT 3 FACILITIES DECLINED THE PATIENT AND [facility] [place] WILLING TO TAKE THE PATIENT BACK. EXPLAINED TO BOTH THAT IT IS HARD TO FIND [facility] PLACEMENT FOR THE PATIENT AND [facility] [place] WILLING TO TAKE THE PATIENT BACK. BOTH ABLE TO VERBALIZE UNDERSTANDING AND AGREED FOR THE PATIENT TO GO BACK TO [facility]. PER NER[facility] OF [facility], PATIENT WILL GO TO ROOM 43B UNDER DR. FUENTES.
[2022-06-18 15:51] VITALS: BP 121/70
[2022-06-18 16:00] VITALS: BP_SYST 126; BP_DIAS 63; BP_DIAS 64
--- NOTE | 2022-06-18 17:40 | NUR ---
RECEIVE CALL FROM ANDREZJ Tam/ BRENT THAT [facility] TRANSPORTATION WILL SPEECH LANGUAGE PATHOLOGIST PATIENT AROUND 18[address] TO [facility] [place] [place]. REPORT GAVE TO JULIA IN [facility] [place] [place] Addendum: 06/18/22 at 1830 by Chelsy Milligan RN PER ANDRZEJ TRANSPORT PROVIDER, [facility] ([phone]) GIVE TRANSPORTATION CASE #[id number], AND SPEECH LANGUAGE PATHOLOGIST TIME ETA IS 183. WILL F/U
--- NOTE | 2022-06-18 19:24 | NUR ---
AROUND 1845, [facility] EMT HERE TO PICK PATIENT TO [facility], REPORT GIVE TO JULIA IN [facility] FOR FOLLOW UP. SISTER AWARE THAT PATIENT IS TRANSFER BACK TO [facility]. WRIST BAND & TEL. MONITOR REMOVED PRIOR PATIENT LEFT
== END 2022-06-18 19:05 | DRG 871 ==
LOC: MED 13:11 → MTU 16:45
PROVIDERS: ADMIT Student in an Organized Health Care Education/Training Program; ATTEND Student in an Organized Health Care Education/Training Program
DX: A41.9 Sepsis, unspecified organism (principal); G93.41 Metabolic encephalopathy; J96.21 Acute and chronic respiratory failure with hypoxia; N17.9 Acute kidney failure, unspecified; N39.0 Urinary tract infection, site not specified; I13.0 Hypertensive heart and chronic kidney disease with heart failure and stage 1 through stage 4 chronic kidney disease, or unspecified chronic kidney disease; N18.4 Chronic kidney disease, stage 4 (severe); I50.9 Heart failure, unspecified; F03.90 Unspecified dementia, unspecified severity, without behavioral disturbance, psychotic disturbance, mood disturbance, and anxiety; E78.00 Pure hypercholesterolemia, unspecified; H70.11 Chronic mastoiditis, right ear; I25.10 Atherosclerotic heart disease of native coronary artery without angina pectoris; K57.90 Diverticulosis of intestine, part unspecified, without perforation or abscess without bleeding; D64.9 Anemia, unspecified; Z20.822 Contact with and (suspected) exposure to COVID-19; E11.22 Type 2 diabetes mellitus with diabetic chronic kidney disease; Z86.73 Personal history of transient ischemic attack (TIA), and cerebral infarction without residual deficits; Z95.1 Presence of aortocoronary bypass graft; Z85.05 Personal history of malignant neoplasm of liver
CPT/HCPCS: 36415; 36600; 70450; 71045; 80048; 80053; 80202; 81001; 82009; 82570; 82728; 82803; 82948; 83540; 83605; 83735; 83880; 84165; 84484; 85025; 87040; 87081; 87086; 87186; 93005; 94640; 96365; 99285; J0696; J1644; J1815; J1940; J2916; J3370; J3475; J7060; Q0092